=== PATIENT | female | born 1975 | race Hispanic/Latino ===

== ENCOUNTER 2023-01-07 01:02 | Day surgery (SDC) | payer BC ==
[2023-01-03 10:33] LABS: BASOPHILS % (AUTO) 0.4 % (0.0-5.0); EOSINOPHILS % (AUTO) 3.4 % (0.0-8.0); HEMATOCRIT 41.9 % (36-48); LYMPHOCYTES % (AUTO) 13.5 % (21.0-51.0); MEAN CORPUSCULAR HEMOGLOBIN 28.4 pg (27.0-33.0); MEAN CORPUSCULAR HGB CONC 32.2 g/dL (32.0-36.0); MONOCYTES % (AUTO) 5.3 % (3.0-13.0); NEUTROPHILS % (AUTO) 76.9 % (40.0-77.0); PLATELET COUNT (AUTO) 593 K/uL (130-400); RED BLOOD CELL COUNT(AUTO) 4.76 MIL/uL (4.00-5.50); RED CELL DISTRIBUTION WIDTH 13.8 % (11.0-15.5); WHITE BLOOD COUNT (AUTO) 9.5 K/uL (4.8-10.8)
[2023-01-03 10:39] VITALS: BP 119/67
[~2023-01-07] VITALS: Ht 167.6 cm; Wt 84.0 kg
[2023-01-07] VITALS (18 sets, daily range): BP systolic 108–125; BP diastolic 52–68
[2023-01-07] MEDS ORDERED: CALDOLOR 800MG+NS 250ML 250 ML IV ONE (11:05)
[2023-01-07] MEDS ORDERED: LACTATED RINGERS 1000ML 1,000 ML IV ONE (13:28)
[2023-01-07] MEDS ORDERED: CEFAZOLIN SODIUM 2 GM VIAL ONE (13:28)
[2023-01-07] MEDS ORDERED: MIDAZOLAM HCL 1 MG/ML 2ML VIAL ONE ×2 (14:49→14:50)
[2023-01-07] MEDS ORDERED: ONDANSETRON 4MG INJ ONE (14:49)
[2023-01-07] MEDS ORDERED: ROCURONIUM 10MG/1ML SYR 10 MG/ML ML ONE (14:50)
[2023-01-07] MEDS ORDERED: FENTANYL CITRATE PF 50 MCG/1 ML 2ML VIAL ONE ×2 (14:50→15:41)
[2023-01-07] MEDS ORDERED: PROPOFOL 10 MG/ML 20ML VIAL IV ONE (14:53)
[2023-01-07] MEDS ORDERED: MEPERIDINE-PF 25 MG/ML SYG ONE ×2 (15:01→16:05)
[2023-01-07] MEDS ORDERED: CEFAZOLIN SODIUM 2 GM VIAL IVPB ONE (15:05)
[2023-01-07] MEDS ORDERED: NEOSTIGMINE 5MG/5ML SYR IV ONE (15:40)
[2023-01-07] MEDS ORDERED: GLYCOPYRROLATE 1 MG/5 ML SYRINGE ONE (15:40)
== END 2023-01-07 17:30 | disposition home or self-care (01) ==
LOC: DAH 01:02
PROVIDERS: ATTEND Obstetrics & Gynecology
DX: N92.1 Excessive and frequent menstruation with irregular cycle (principal); D25.1 Intramural leiomyoma of uterus; Z90.49 Acquired absence of other specified parts of digestive tract; Z20.822 Contact with and (suspected) exposure to COVID-19
CPT/HCPCS: 84703; 85025; 86850 ×2; 86900 ×2; 86901 ×2; 87426; 36415 ×2; 58558; 81025; A6260; A4663; J7030 ×2; A4351; A4355; J7120; J3010 ×2; J3490; J2710; J2250; J2704; J2405; J2175 ×2; J1741; J0690 ×2; A4215; A4223; A4222; A4221